=== PATIENT | male | born 1995 | race Caucasian/White ===

== ENCOUNTER 2019-11-09 23:43 | Emergency (ER) | payer SELFPAY ==
[2019-11-10 00:06] VITALS: BP 132/78; PULSE 85; RESP 18; TEMP 36.8; O2SAT 97; BMI 19.5
[2019-11-10 00:29] VITALS: BP 124/76; PULSE 70; RESP 14; O2SAT 98
[2019-11-10] MEDS: sodium chloride 0.9% 100 ML (00:32)
[2019-11-10] MEDS: famotidine 20 mg/2 mL INJ 40 MG IVP (00:34)
--- NOTE | 2019-11-10 00:35 | ED_ITS ---
HPI - Allergic Reaction General: Chief complaint: Allergic Reaction Stated complaint: allergic reaction/hives Time Seen by Provider: 11/10/19 00:20 History of Present Illness: HPI narrative: started with rash last night and did not take her Bactrim this morning. He did take a Bactrim at 830 tonight and the rash is worsening. And he is now complained of itching and felt lightheaded he has taken the 4-5 Benadryl 25 mg today. complaint: allergic reaction and hives Onset (ago): hour(s) Exposure: medication (Bactrim) Associated symptoms: Reports no associated symptoms; Deny abdominal pain, nausea or vomiting Treatment prior to arrival: benadryl (4-5 throughout the day) Review of Systems Const: Denies: fever, chills or body aches Eyes: Denies: change in vision or blurry vision ENMT: Denies: throat pain or nasal congestion Card: Denies: chest pain or shortness of breath on exertion Resp: Denies: shortness of breath, productive cough or non-productive cough GI: Denies: abdominal pain, nausea or vomiting : Denies: difficulty urinating Musc: Denies: extremity pain Skin/Breast: Reports: rash, itching and redness Neuro: Denies: headache Psych: Denies: anxiety or depression Kostas/Lymph: Denies: easy bruising PFSH ED PFSH: Statuses (acute, chronic, etc) shown below reflect problem list status as previously entered and may not be historically accurate Social History Smoking and tobacco status: never smoked Physical Exam Const: COMMON NORMALS: no apparent distress, average body habitus and oriented x3 HENMT: COMMON NORMALS: normocephalic HEAD & SCALP: normal to inspection and normocephalic FACE & SINUS: normal facial exam Eye: COMMON NORMALS: conjunctivae normal GENERAL EYE: normal appearance of both eyes CONJUNCTIVA: Yes conjunctivae normal Neck/C-Spine: COMMON NORMALS: no JVD Chest: COMMONS NORMALS: inspection of chest normal Resp: COMMON NORMALS: normal respiratory effort and clear to auscultation bilaterally AUSCULTATION: clear to auscultation bilaterally Cardio: COMMON NORMALS: no JVD, regular rate and regular rhythm RATE: regular rate RHYTHM: regular rhythm GI: COMMON NORMALS: normal to inspection, nondistended, normoactive bowel sounds Extremity: COMMON NORMALS: normal to inspection and full ROM Neuro: COMMON NORMALS: oriented x3 Skin: RASHES: rashes noted (Maculopapular rash scattered all about) Course Vital Signs: Vital signs: Vital Signs Temperature 98.2 F 11/10/19 00:06 Pulse Rate 61 11/10/19 01:39 Respiratory Rate 14 11/10/19 01:39 Blood Pressure 123/63 11/10/19 01:30 Pulse Oximetry 98 11/10/19 01:39 Discharge Plan Discharge Patient Disposition: Home, Self-Care Clinical Impression: Allergic reaction, Adverse reaction to drug Condition: Stable Prescriptions: New prednisone 5 mg tablet 10 mg PO DAILY Qty: 20 RF: 0 No Action hydrocodone-acetaminophen 5-325 mg Tablet 1 tab PO Q6H PRN (Reason: Pain, Moderate) RF: 0 Bactrim DS 800-160 mg Tablet 1 tab PO Q12H RF: 0 Discharge Diet: Usual diet Discharge Activity: Resume usual activity Patient Instructions: Antibiotic Medication Allergy (ED) Activity Restrictions/Additional Instructions: Stop Bactrim take medication as prescribed follow-up with PCP if no significant improvement or return here, take benadryl for itching Stand Alone Forms: Work/School Release Coding Level of Care Code ED [employer] Front Office Manager for Liam Mayorga Exam Problem Focused
[2019-11-10 01:04] VITALS: BP 123/70; PULSE 65; RESP 14; O2SAT 98
[2019-11-10 01:30] VITALS: BP 123/63
[2019-11-10 01:39] VITALS: PULSE 61; RESP 14; O2SAT 98
[2019-11-10 02:28] VITALS: BP 124/72; PULSE 62; RESP 14; O2SAT 98
== END 2019-11-10 02:38 | disposition home or self-care (01) ==
PROVIDERS: Emergency Provider Nurse Practitioner Family
DX: T88.7XXA Unspecified adverse effect of drug or medicament, initial encounter (principal); T50.905A Adverse effect of unspecified drugs, medicaments and biological substances, initial encounter
CPT/HCPCS: 96360; 96374; 99281; J2930; J3490

== ENCOUNTER 2021-10-08 08:14 | Emergency (ER) | payer OTHER, SELFPAY ==
[2021-10-08 08:21] VITALS: BP 114/74; PULSE 86; RESP 18; TEMP 36.9; O2SAT 98; BMI 19.0
--- NOTE | 2021-10-08 08:41 | W.ED.WOUNDLC ---
Documented by User: ROD Haas 10/08/21 09:41 HPI - Wound/Laceration General: Chief Complaint: Wound/Laceration Stated Complaint: left hand injury Time Seen by Provider: 10/08/21 08:31 History of Present Illness: HPI narrative: Patient presents here with laceration left index finger from a dried fruit washer injury that occurred less than hour ago. 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 Patient says he has slight numbness from the MIP joint down has ecchymosis and redness extending down to the base of the finger. Onset (ago): minute(s) Extremity Location: Left: hand (Index finger) Place: work Patient tetanus UTD: No Context: accidental Associated symptoms: Reports numbness and pain; Denies chills, fever(s), nausea or vomiting Treatments prior to arrival: bandage Review of Systems Const: Denies: fever(s), chills or body aches Eyes: Denies: change in vision or blurry vision ENMT: Denies: throat pain or nasal congestion Card: Denies: chest pain or dyspnea on exertion Resp: Denies: dyspnea, productive cough or non-productive cough GI: Denies: abdominal pain, nausea or vomiting : Denies: difficulty urinating Musc: Reports: extremity pain (Left index finger) Skin/Breast: Denies: rash Neuro: Denies: headache(s) Psych: Denies: anxiety or depression Kostas/Lymph: Denies: easy bruising PFSH ED PFSH: Social History Smoking and tobacco status: never smoked Physical Exam Const: COMMON NORMALS: no acute distress GENERAL APPEARANCE: cooperative Psych: COMMON NORMALS: mental status grossly normal Skin: OTHER: Left index finger has about a 1 inch laceration to the palmar aspect above the DIP joint There is no active bleeding. There is redness extending down below the metacarpal joint there is ecchymosis base of the finger. Patient does have full range of motion. Does have distal sensation. Patient has mild to moderate swelling. Course Vital Signs: Vital signs: Vital Signs Temperature 98.4 F 10/08/21 08:21 Pulse Rate 86 10/08/21 08:21 Respiratory Rate 18 10/08/21 08:21 Blood Pressure 114/74 10/08/21 08:21 Pulse Oximetry 98 10/08/21 08:21 MDM - Wound/Laceration MDM Narrative: Medical decision making narrative: Dr. Alston came in and assessed the patient. Recommendation transfer to hand surgeon. I spoke with Dr. Luevano at [facility] hospital with [facility]. Shared clinical signs radiology results and case history with Dr. Luevano. Dr. Isaacs asked that we transfer the patient up, life or limb, to orthopedic hospital in [facility] so he can be taken directly to surgery for debridement. Copy of MSDS sheet and radiology report/CD image sent. Lab Data: Labs: Lab Results 10/08/21 10/08/21 09:17 09:17 WBC 6.5 10^3/uL 10^3/ uL (4.0-10.0) RBC 5.08 10^6/uL 10^6 /uL (4.1-5.3) Hgb 15.5 g/dL g/dL (11.7-16.6) Hct 44.9 % % (42.0-52.0) MCV 88.4 fl fl (80-94) MCH 30.5 pg pg (28.0-34.0) MCHC 34.5 g/dL g/dL (30.0-36.0) RDW 12.1 % % (12.1-15.1) Plt Count 256 10^3/cmm 10^3 /cmm (130-400) MPV 9.9 fL fL (7.4-10.4) Neut % (Auto) 67.0 % % Lymph % (Auto) 21.8 % % Emmons % (Auto) 10.2 % % Eos % (Auto) 0.5 % % Baso % (Auto) 0.2 % % Neut # (Auto) 4.36 10^3/uL 10^3 /uL (1.8-7.7) Lymph # (Auto) 1.4 10^3/uL 10^3/ uL (0.8-4.8) Emmons # (Auto) 0.7 10^3/uL 10^3/ uL (0.2-0.9) Eos # (Auto) 0.0 10^3/uL 10^3/ uL (0.0-0.8) Baso # (Auto) 0.0 10^3/uL 10^3/ uL (0.0-0.1) Nucleated RBC % (a uto) 0 % % Nucleated RBCs # 0.0 /100WBC /100W BC Sodium 141 mmol/L mmol/L (136-145) Potassium 4.2 mmol/L mmol/L (3.5-5.1) Chloride 102 mmol/L mmol/L (98-107) Carbon Dioxide 29 mmol/L mmol/L (22-29) Anion Gap 14.2 (5-19) BUN 15 mg/dL mg/dL (6-20) Creatinine 1.0 mg/dL mg/dL (0.7-1.2) GFR Calculation 89.0 mL/min L mL/ min (90-130) Glucose 89 mg/dL mg/dL (65-115) Calculated Osmolal ity 292 mOsm/kg mOsm/ kg (285-295) Calcium 9.8 mg/dL mg/dL (8.5-10.5) Discharge Plan Discharge Patient Disposition: Transfer to ED Condition: Stable Prescriptions: No Action hydrocodone-acetaminophen 5-325 mg Tablet 1 tab PO Q6H PRN (Reason: Pain, Moderate) RF: 0 Bactrim DS 800-160 mg Tablet 1 tab PO Q12H RF: 0 prednisone 5 mg tablet 10 mg PO DAILY Qty: 20 RF: 0 Coding Level of Care Code ED Channeler Insole for Chg Fwd Exam Expanded Problem Focused Documented by User: Solomon Alston 10/08/21 13:25 HPI - Wound/Laceration General: Chief Complaint: Wound/Laceration Stated Complaint: left hand injury Time Seen by Provider: 10/08/21 08:31 PFS ED PFSH: Social History Smoking and tobacco status: never smoked Course Vital Signs: Vital signs: Vital Signs Temperature 98.4 F 10/08/21 08:21 Pulse Rate 86 10/08/21 08:21 Respiratory Rate 18 10/08/21 08:21 Blood Pressure 114/74 10/08/21 08:21 Pulse Oximetry 98 10/08/21 08:21 MDM - Wound/Laceration Lab Data: Labs: Lab Results 10/08/21 10/08/21 09:17 09:17 WBC 6.5 10^3/uL 10^3/ uL (4.0-10.0) RBC 5.08 10^6/uL 10^6 /uL (4.1-5.3) Hgb 15.5 g/dL g/dL (11.7-16.6) Hct 44.9 % % (42.0-52.0) MCV 88.4 fl fl (80-94) MCH 30.5 pg pg (28.0-34.0) MCHC 34.5 g/dL g/dL (30.0-36.0) RDW 12.1 % % (12.1-15.1) Plt Count 256 10^3/cmm 10^3 /cmm (130-400) MPV 9.9 fL fL (7.4-10.4) Neut % (Auto) 67.0 % % Lymph % (Auto) 21.8 % % Emmons % (Auto) 10.2 % % Eos % (Auto) 0.5 % % Baso % (Auto) 0.2 % % Neut # (Auto) 4.36 10^3/uL 10^3 /uL (1.8-7.7) Lymph # (Auto) 1.4 10^3/uL 10^3/ uL (0.8-4.8) Emmons # (Auto) 0.7 10^3/uL 10^3/ uL (0.2-0.9) Eos # (Auto) 0.0 10^3/uL 10^3/ uL (0.0-0.8) Baso # (Auto) 0.0 10^3/uL 10^3/ uL (0.0-0.1) Nucleated RBC % (a uto) 0 % % Nucleated RBCs # 0.0 /100WBC /100W BC Sodium 141 mmol/L mmol/L (136-145) Potassium 4.2 mmol/L mmol/L (3.5-5.1) Chloride 102 mmol/L mmol/L (98-107) Carbon Dioxide 29 mmol/L mmol/L (22-29) Anion Gap 14.2 (5-19) BUN 15 mg/dL mg/dL (6-20) Creatinine 1.0 mg/dL mg/dL (0.7-1.2) GFR Calculation 89.0 mL/min L mL/ min (90-130) Glucose 89 mg/dL mg/dL (65-115) Calculated Osmolal ity 292 mOsm/kg mOsm/ kg (285-295) Calcium 9.8 mg/dL mg/dL (8.5-10.5) Discharge Plan Discharge Patient Disposition: Transfer to ED Condition: Stable Prescriptions: No Action hydrocodone-acetaminophen 5-325 mg Tablet 1 tab PO Q6H PRN (Reason: Pain, Moderate) RF: 0 Bactrim DS 800-160 mg Tablet 1 tab PO Q12H RF: 0 prednisone 5 mg tablet 10 mg PO DAILY Qty: 20 RF: 0 Coding Level of Care Code ED Channeler Insole for Liam Fwd Exam Expanded Problem Focused
--- NOTE | 2021-10-08 08:49 | XR_ITS ---
WS: [id number] Left hand, 3 views, 10/08/2021 Clinical Data: index finger machine washer injury Comparison: None. Findings: No fractures or dislocations are seen. The soft tissues are unremarkable. The joint spaces are normal No radiopaque foreign bodies are seen. The patient's ring obscures detail over the proximal left four th finger phalanx. XR/XR hand LT min 3V* [id number] Impression: Negative left hand.
[2021-10-08] MEDS: sodium chloride 0.9% 1,000 ML 125 ML IV (09:21)
[2021-10-08 09:38] LABS: Basophils % 0.2 %; Eosinophils % 0.5 %; Hematocrit 44.9 % (42.0-52.0); Hemoglobin 15.5 g/dL (11.7-16.6); Lymphocytes # 1.4 10^3/uL (0.8-4.8); Lymphocytes % 21.8 %; Mean Corpuscular HGB Conc 34.5 g/dL (30.0-36.0); Mean Corpuscular Hemoglobin 30.5 pg (28.0-34.0); Mean Corpuscular Volume 88.4 fl (80-94); Mean Platelet Volume 9.9 fL (7.4-10.4); Monocytes # 0.7 10^3/uL (0.2-0.9); Monocytes % 10.2 %; Neutrophils # 4.36 10^3/uL (1.8-7.7); Nucleated Red Blood Cells % 0 %; Platelet Count 256 10^3/cmm (130-400); Red Blood Count 5.08 10^6/uL (4.1-5.3); Red Cell Distribution Width 12.1 % (12.1-15.1); White Blood Count 6.5 10^3/uL (4.0-10.0)
[2021-10-08] MEDS: piperacillin-tazobactam 3.375 GM in sodium chloride 0.9% (plus) 50 ML IV (09:46)
[2021-10-08 09:59] LABS: Anion Gap 14.2 (5-19); Blood Urea Nitrogen 15 mg/dL (6-20); Calcium 9.8 mg/dL (8.5-10.5); Carbon Dioxide 29 mmol/L (22-29); Chloride 102 mmol/L (98-107); Creatinine Clr Calc Pharmacy 98.7824; Glucose 89 mg/dL (65-115); Osmolality Calculated 292 mOsm/kg (285-295); Potassium 4.2 mmol/L (3.5-5.1); Sodium 141 mmol/L (136-145)
== END 2021-10-08 10:20 ==
PROVIDERS: Emergency Provider Nurse Practitioner Family
DX: S69.92XA Unspecified injury of left wrist, hand and finger(s), initial encounter (principal); W31.89XA Contact with other specified machinery, initial encounter
CPT/HCPCS: 73130; 80048; 85025; 96365; 99283; J2543; J7030

== ENCOUNTER → 2023-04-26 14:37 | Outpatient (BNVA) | payer SELFPAY | PROVIDERS: Visit Provider Nurse Practitioner Family | DX: R39.9 Unspecified symptoms and signs involving the genitourinary system (principal); N20.0 Calculus of kidney | CPT/HCPCS: 81000; 87086 ==